=== PATIENT | female | born 1990 | race African-American/Black ===

== ENCOUNTER 2019-03-07 18:42 | Emergency (ER) | payer MEDICAID ==
[~2019-03-07] VITALS: Ht 180.3 cm; Wt 65.8 kg
[2019-03-07 19:03] VITALS: BP 114/86; Ht 180.3 cm; Wt 65.8 kg
== END 2019-03-07 20:43 | disposition other institution (70) ==
LOC: ED 18:42
DX: F41.9 Anxiety disorder, unspecified (principal); R07.81 Pleurodynia; S39.012A Strain of muscle, fascia and tendon of lower back, initial encounter; F31.9 Bipolar disorder, unspecified; Z13.89 Encounter for screening for other disorder; Z88.0 Allergy status to penicillin; X58.XXXA Exposure to other specified factors, initial encounter; Y93.89 Activity, other specified; Y92.89 Other specified places as the place of occurrence of the external cause; Y99.8 Other external cause status

== ENCOUNTER 2019-03-07 18:42 | Emergency (ER) | payer OTHER | END 2019-03-07 20:43 | disposition other institution (70) | LOC: ED 18:42 | DX: Z02.89 Encounter for other administrative examinations (principal) ==